=== PATIENT | female | born 1955 | race Caucasian/White ===

== ENCOUNTER 2020-08-31 07:40 | Emergency (ER) | payer OTHER ==
[~2020-08-31] VITALS: Ht 170.2 cm; Wt 73.6 kg
[2020-08-31 07:44] VITALS: BP 140/57
[2020-08-31] MEDS ORDERED: CELE50CA PO (07:46)
[2020-08-31] MEDS ORDERED: BACL10TA PO (07:46)
[2020-08-31] MEDS ORDERED: DiphenhydrAMINE HCL 25 MG CAPSULE PO ONE (08:15)
[2020-08-31] MEDS ORDERED: PredniSONE 20 MG TABLET PO ONE (08:15)
== END 2020-08-31 08:21 | disposition home or self-care (01) ==
LOC: EMS 07:45
DX: T78.40XA Allergy, unspecified, initial encounter (principal); F17.210 Nicotine dependence, cigarettes, uncomplicated; X58.XXXA Exposure to other specified factors, initial encounter
CPT/HCPCS: 99283; J7512

== ENCOUNTER 2020-08-31 14:35 | Emergency (ER) | payer MEDICARE, OTHER ==
[~2020-08-31] VITALS: Ht 170.2 cm; Wt 73.6 kg
[~2020-08-31 14:35] MED LIST: BACL10TA PO; CELE50CA PO
[2020-08-31 14:37] VITALS: BP 122/64
== END 2020-08-31 15:53 | disposition home or self-care (01) ==
LOC: EMS 14:37
DX: T78.40XA Allergy, unspecified, initial encounter (principal); F17.210 Nicotine dependence, cigarettes, uncomplicated; X58.XXXA Exposure to other specified factors, initial encounter
CPT/HCPCS: 99282; Z7502